=== PATIENT | male | born 1975 | race Caucasian/White ===

== ENCOUNTER → 2017-01-05 | Outpatient (REF) | payer OTHER | LOC: M LAB REF 17:07 | PROVIDERS: ATTEND Physician Assistant | DX: G89.4 Chronic pain syndrome (principal) ==

== ENCOUNTER → 2017-03-09 | Outpatient (CLI) | payer OTHER ==
[2017-03-09 17:32] LABS: ANION GAP 8 MEQ/L (8-16); BLOOD UREA NITROGEN 22 MG/DL (7-18); CALCIUM LEVEL 9.1 MG/DL (8.5-10.1); CARBON DIOXIDE LEVEL 29 MEQ/L (21-32); CHLORIDE LEVEL 104 MEQ/L (98-107); CREATININE FOR GFR 0.92 MG/DL (0.70-1.30); GLOMERULAR FILTRATION RATE > 60.0 (>60); GLUCOSE, FASTING 100 MG/DL (70-105); POTASSIUM SERUM 4.6 MEQ/L (3.5-5.1); SODIUM LEVEL 141 MEQ/L (136-145)
== END ==
LOC: M WUC 12:59
PROVIDERS: ATTEND Physician Assistant Medical
DX: R73.01 Impaired fasting glucose (principal); I10 Essential (primary) hypertension

== ENCOUNTER → 2017-04-21 | Outpatient (CLI) | payer OTHER ==
[2017-04-21 18:32] LABS: FREE T4 1.13 NG/DL (0.76-1.46)
[2017-04-21 18:50] LABS: THYROID PEROXIDASE ANTIBODY < 28.0 U/ML (<60.0)
== END ==
LOC: M SMT 14:42
PROVIDERS: ATTEND Family Medicine
DX: E04.0 Nontoxic diffuse goiter (principal)

== ENCOUNTER → 2017-04-26 | Outpatient (CLI) | payer OTHER ==
--- NOTE | 2017-04-27 05:40 | REP ---
Clinical: Hypothyroidism. Mass effect. Technique: Real time hedrick scale ultrasound examination using linear high frequency transducer. Findings: With the exception of a small 5.4 x 3.1 x 2.7 cm cyst with mural calcification in the lower pole of the right thyroid lobe, the thyroid gland is normal in contour, size, and overall parenchymal echogenicity. No further nodule or cystic abnormalities are identified. Right lobe measures 4.7 x 1.3 x 2.0 cm. Left lobe measures 4.3 x 1.3 x 1.2 cm. Isthmus measures 4.7 mm in width. Impression: 5 mm nonspecific right lower pole cyst. Otherwise normal thyroid gland. Signed by Seb Shelton MD 04/27/2017 05:31 A
== END ==
LOC: M RAD 13:10
PROVIDERS: ATTEND Family Medicine
DX: E04.1 Nontoxic single thyroid nodule (principal)

== ENCOUNTER → 2017-07-30 | Outpatient (CLI) | payer OTHER | LOC: M RAD 13:52 | DX: J32.9 Chronic sinusitis, unspecified (principal) | CPT/HCPCS: 70486 ==

== ENCOUNTER → 2018-03-29 | Outpatient (CLI) | payer OTHER ==
[2018-03-29 19:08] LABS: ALBUMIN 3.7 GM/DL (3.2-5.2); ALBUMIN/GLOBULIN RATIO 1.12 (1.00-1.93); ALKALINE PHOSPHATASE 81 U/L (45-117); ALT/SGPT 36 U/L (12-78); ANION GAP 7 MEQ/L (8-16); AST/SGOT 15 U/L (7-37); BILIRUBIN,TOTAL 0.3 MG/DL (0.2-1.0); BLOOD UREA NITROGEN 21 MG/DL (7-18); CARBON DIOXIDE LEVEL 31 MEQ/L (21-32); CHLORIDE LEVEL 102 MEQ/L (98-107); FREE T4 1.11 NG/DL (0.76-1.46); GLOMERULAR FILTRATION RATE > 60.0 (>60); GLUCOSE, FASTING 99 MG/DL (70-100); POTASSIUM SERUM 4.5 MEQ/L (3.5-5.1); SODIUM LEVEL 140 MEQ/L (136-145)
[2018-03-29 22:45] LABS: CHLAMYDIA DNA AMPLIFICATION NEGATIVE (NEGATIVE); GC DNA AMPLIFICATION NEGATIVE (NEGATIVE)
[2018-03-30 10:35] LABS: HEPATITIS C VIRUS ABY INDEX 0.2 INDEX (<0.8); HIV 1&2 SCREEN CENTAUR NEGATIVE (NEGATIVE)
== END ==
LOC: M SMT 14:19
DX: E03.9 Hypothyroidism, unspecified (principal); B37.0 Candidal stomatitis; Z11.3 Encounter for screening for infections with a predominantly sexual mode of transmission; R19.7 Diarrhea, unspecified
CPT/HCPCS: 84443

== ENCOUNTER → 2018-10-14 | Outpatient (REF) | payer OTHER ==
[2018-10-14 17:35] LABS: INFLUENZA A AMPLIFICATION NEGATIVE (NEGATIVE); INFLUENZA B AMPLIFICATION NEGATIVE (NEGATIVE)
== END ==
LOC: M LAB REF 16:50
PROVIDERS: ATTEND Physician Assistant
DX: J11.1 Influenza due to unidentified influenza virus with other respiratory manifestations (principal)

== ENCOUNTER → 2019-03-20 | Outpatient (REF) | payer OTHER | LOC: M LAB REF 15:22 | PROVIDERS: ATTEND Physician Assistant Medical | DX: R10.9 Unspecified abdominal pain (principal) ==

== ENCOUNTER → 2019-04-07 | Outpatient (REF) | payer OTHER ==
[2019-04-07 19:54] LABS: THYROID STIMULATING HORMONE 0.541 uIU/ML (0.358-3.740)
== END ==
LOC: M SFHCLERA 14:14
PROVIDERS: ATTEND Nurse Practitioner Family
DX: E03.9 Hypothyroidism, unspecified (principal)

== ENCOUNTER → 2019-08-10 | Outpatient (CLI) | payer OTHER ==
[2019-08-10 14:01] LABS: BLOOD UREA NITROGEN 15 MG/DL (7-18); CALCIUM LEVEL 8.9 MG/DL (8.5-10.1); CARBON DIOXIDE LEVEL 32 MEQ/L (21-32); CHLORIDE LEVEL 102 MEQ/L (98-107); CREATININE FOR GFR 1.03 MG/DL (0.70-1.30); GLOMERULAR FILTRATION RATE > 60.0 (>60); GLUCOSE, FASTING 80 MG/DL (70-100); POTASSIUM SERUM 3.2 MEQ/L (3.5-5.1); SODIUM LEVEL 139 MEQ/L (136-145); THYROID STIMULATING HORMONE 0.953 uIU/ML (0.358-3.740)
[2019-08-12 00:07] LABS: TESTOSTERONE FREE (DIRECT) 9.3 pg/mL (6.8-21.5)
== END ==
LOC: M WUC 09:06
PROVIDERS: ATTEND Family Medicine
DX: F52.0 Hypoactive sexual desire disorder (principal)

== ENCOUNTER → 2019-09-18 | Outpatient (REF) | payer OTHER | LOC: M SFHCLERA 16:48 | PROVIDERS: ATTEND Nurse Practitioner Family | DX: R68.89 Other general symptoms and signs (principal) ==

== ENCOUNTER → 2020-04-30 | Outpatient (CLI) | payer OTHER | LOC: M WUC 13:45 | PROVIDERS: ATTEND Family Medicine | DX: N40.0 Benign prostatic hyperplasia without lower urinary tract symptoms (principal) ==

== ENCOUNTER → 2020-07-22 | Outpatient (CLI) | payer OTHER ==
--- NOTE | 2020-07-22 18:13 | REP ---
INDICATION: N50.9 TESTICULAR LESION COMPARISON: None. TECHNIQUE: Olivas scale and color Doppler evaluation using linear and curved array transducer with color Doppler evaluation. FINDINGS: The bilateral testicles are normal in contour, size, echogenicity and vascularity without intratesticular mass lesion, infectious/inflammatory process, or torsion. The left epididymis including appendix epididymis appears normal. Patient's palpable mass corresponds to 2.2 x 1.9 x 1.5 cm simple right epididymal head cyst. No hydroceles. No varicoceles. Right testicle measures 5.3 x 2.4 x 3.2 cm. Left testicle measures 5.3 x 2.2 x 3.4 cm. IMPRESSION: Palpable mass corresponds to 2.2 cm simple right epididymal head cyst. Otherwise essentially normal scrotal/testicular ultrasound. <Electronically signed by Seb Shelton > 07/22/20 [id number]
== END ==
LOC: M WHC 09:58
PROVIDERS: ATTEND Family Medicine
DX: N50.9 Disorder of male genital organs, unspecified (principal)

== ENCOUNTER → 2021-01-01 | Outpatient (REF) | payer OTHER | LOC: M WUC 16:20 | PROVIDERS: ATTEND Family Medicine | DX: E03.9 Hypothyroidism, unspecified (principal) ==

== ENCOUNTER → 2022-05-14 | Outpatient (CLI) | payer OTHER ==
[2022-05-14 17:04] LABS: BASO % 0.4 % (0.0-1.0); EOS # 0.3 10^3/uL (0.0-0.5); EOS % 3.9 % (0.0-3.0); HEMATOCRIT 48.6 % (42.0-52.0); HEMOGLOBIN 16.2 g/dl (13.5-17.5); LYMPH # 1.4 10^3/uL (1.5-5.0); LYMPH % 17.5 % (24.0-44.0); MEAN CORPUSCULAR HEMOGLOBIN 32.2 pg (27.0-33.0); MEAN CORPUSCULAR HGB CONC 33.3 g/dl (32.0-36.5); MEAN CORPUSCULAR VOLUME 96.6 fl (80.0-96.0); MONO # 0.6 10^3/uL (0.0-0.8); MONO % 7.8 % (2.0-8.0); NEUTROPHILS # 5.7 10^3/uL (1.5-8.5); NEUTROPHILS % 69.8 % (36.0-66.0); PLATELET COUNT, AUTOMATED 347 10^3/uL (150-450); RED BLOOD COUNT 5.03 10^6/uL (4.30-6.10); WHITE BLOOD COUNT 8.2 10^3/uL (4.0-10.0)
[2022-05-14 17:49] LABS: ALBUMIN 3.9 GM/DL (3.2-5.2); ALT/SGPT 31 U/L (12-78); BILIRUBIN,TOTAL 0.4 MG/DL (0.2-1.0); BLOOD UREA NITROGEN 10 MG/DL (7-18); CALCIUM LEVEL 9.3 MG/DL (8.5-10.1); CARBON DIOXIDE LEVEL 29 MEQ/L (21-32); CHLORIDE LEVEL 103 MEQ/L (98-107); GLOMERULAR FILTRATION RATE > 60.0 (>60); GLUCOSE, FASTING 142 MG/DL (70-100); POTASSIUM SERUM 4.3 MEQ/L (3.5-5.1); SODIUM LEVEL 137 MEQ/L (136-145); TOTAL PROTEIN 7.5 GM/DL (6.4-8.2)
== END ==
LOC: M WUC 13:05
PROVIDERS: ATTEND Physician Assistant
DX: M54.50 Low back pain, unspecified (principal); R31.9 Hematuria, unspecified

== ENCOUNTER → 2022-08-05 | Outpatient (CLI) | payer OTHER ==
[2022-08-05 09:46] LABS: APPEARANCE, URINE MANUAL CLEAR (CLEAR); BILIRUBIN, URINE MANUAL NEGATIVE (NEGATIVE); BLOOD URINE MANUAL POSITIVE (NEGATIVE); COLOR, URINE MANUAL YELLOW (YELLOW); GLUCOSE, URINE (UA) MANUAL NEGATIVE (NEGATIVE); KETONE, URINE MANUAL NEGATIVE (NEGATIVE); LEUKOCYTE ESTERASE, URINE MAN NEGATIVE (NEGATIVE); NITRITE, URINE MANUAL NEGATIVE (NEGATIVE); PROTEIN, URINE MANUAL NEGATIVE (NEGATIVE); UROBILINOGEN, URINE MANUAL NORMAL (NORMAL)
[2022-08-05 09:52] LABS: BASO # 0.1 10^3/uL (0.0-0.2); BASO % 0.5 % (0.0-1.0); EOS # 0.3 10^3/uL (0.0-0.5); EOS % 3.1 % (0.0-3.0); HEMATOCRIT 48.5 % (42.0-52.0); HEMOGLOBIN 16.2 g/dl (13.5-17.5); LYMPH # 2.1 10^3/uL (1.5-5.0); LYMPH % 19.5 % (24.0-44.0); MEAN CORPUSCULAR HEMOGLOBIN 31.8 pg (27.0-33.0); MEAN CORPUSCULAR HGB CONC 33.4 g/dl (32.0-36.5); MEAN CORPUSCULAR VOLUME 95.1 fl (80.0-96.0); MONO # 0.9 10^3/uL (0.0-0.8); MONO % 8.3 % (2.0-8.0); NEUTROPHILS # 7.2 10^3/uL (1.5-8.5); NEUTROPHILS % 67.4 % (36.0-66.0); PLATELET COUNT, AUTOMATED 329 10^3/uL (150-450); WHITE BLOOD COUNT 10.6 10^3/uL (4.0-10.0)
[2022-08-05 10:06] LABS: HEMOGLOBIN A1c 5.4 % (4.0-6.0)
[2022-08-05 10:17] LABS: SQUAMOUS EPITHELIAL CELL URINE SMALL AMOUNT /hpf (SMALL AMT)
[2022-08-05 10:18] LABS: BACTERIA, URINE NONE SEEN; HYALINE CAST, URINE NONE SEEN /lpf (0-1); MUCUS, URINE SMALL AMOUNT (NEGATIVE); SPERM, URINE SMALL AMOUNT
[2022-08-05 10:25] LABS: ALBUMIN 3.9 G/DL (3.2-5.2); ALKALINE PHOSPHATASE 98 U/L (46-116); ALT/SGPT 33 U/L (7.0-40); AST/SGOT 21 U/L (<34); BILIRUBIN,TOTAL 0.5 MG/DL (0.3-1.2); BLOOD UREA NITROGEN 18 MG/DL (9-23); CALCIUM LEVEL 9.1 MG/DL (8.5-10.1); CARBON DIOXIDE LEVEL 32 MMOL/L (20-31); CHLORIDE LEVEL 100 MMOL/L (98-107); CHOLESTEROL LEVEL 172 MG/DL (<200); CHOLESTEROL RISK RATIO 4.58 (<5); GLOMERULAR FILTRATION RATE > 60.0 (>60); GLUCOSE, FASTING 131 MG/DL (60-100); HDL CHOLESTEROL 37.5 MG/DL (>40); LDL CHOLESTEROL 116.3 MG/DL (<100); NON-HDL-C 135 MG/DL; SODIUM LEVEL 139 MMOL/L (136-145); TOTAL PROTEIN 7.2 G/DL (5.7-8.2); TRIGLYCERIDES LEVEL 91 MG/DL (<150)
[2022-08-05 10:35] LABS: FREE T4 1.03 NG/DL (0.89-1.76)
[2022-08-05 10:36] LABS: TOTAL 25(OH) VITAMIN D 36.6 NG/ML (20.0-100.0)
[2022-08-05 11:55] LABS: THYROID STIMULATING HORMONE 2.222 uIU/ML (0.55-4.78)
== END ==
LOC: M WUC 08:36
PROVIDERS: ATTEND Physician Assistant
DX: R39.9 Unspecified symptoms and signs involving the genitourinary system (principal); I10 Essential (primary) hypertension; E66.01 Morbid (severe) obesity due to excess calories

== ENCOUNTER → 2022-10-05 | Outpatient (CLI) | payer OTHER ==
[~2022-10-05] MED LIST: GASTROGRAFIN SOLUTION 30ML As Ordered ONE; ISOVUE-370 76% 100ML VIAL As Ordered ONE
== END ==
LOC: M RAD 11:54
PROVIDERS: ATTEND Physician Assistant
DX: R39.9 Unspecified symptoms and signs involving the genitourinary system (principal); K92.1 Melena; R10.9 Unspecified abdominal pain; R19.5 Other fecal abnormalities
CPT/HCPCS: 74178; Q9963; Q9967

== ENCOUNTER → 2023-04-28 | Outpatient (REF) | payer OTHER ==
[2023-04-28 18:06] LABS: APPEARANCE, URINE CLEAR (CLEAR); BACTERIA, URINE AUTO NEGATIVE (NEGATIVE); BILIRUBIN, URINE AUTO NEGATIVE (NEGATIVE); BLOOD, URINE BLOOD 2+ (NEGATIVE); COLOR, URINE YELLOW (YELLOW); GLUCOSE, URINE (UA) AUTO NEGATIVE (NEGATIVE); KETONE, URINE AUTO NEGATIVE (NEGATIVE); LEUKOCYTE ESTERASE, URINE AUTO NEGATIVE (NEGATIVE); MUCUS, URINE SMALL (NEGATIVE); NITRITE, URINE AUTO NEGATIVE (NEGATIVE); PROTEIN, URINE AUTO NEGATIVE (NEGATIVE); RBC, URINE AUTO 5 /HPF (0-3); SPECIFIC GRAVITY URINE AUTO 1.016 (1.002-1.035); SQUAMOUS EPITHELIAL CELL UR AU 0 /HPF (0-6); UROBILINOGEN, URINE AUTO 0.2 mg/dL (0.0-2.0); WBC, URINE AUTO 0 /HPF (0-3)
== END ==
LOC: M SFHCLERA 16:49
PROVIDERS: ATTEND Physician Assistant
DX: R31.29 Other microscopic hematuria (principal); J22 Unspecified acute lower respiratory infection

== ENCOUNTER → 2023-06-24 | Outpatient (CLI) | payer OTHER | LOC: M RAD 11:31 | PROVIDERS: ATTEND Physician Assistant | DX: J32.9 Chronic sinusitis, unspecified (principal); J34.1 Cyst and mucocele of nose and nasal sinus ==

== ENCOUNTER 2023-08-12 01:58 | Emergency (ER) | payer OTHER ==
[~2023-08-12] VITALS: Ht 167.6 cm; Wt 114.3 kg
[2023-08-12 01:59] VITALS: BP 162/92; TEMP 97.6; O2SAT 97
[2023-08-12] MEDS ORDERED: OXYCODONE/APAP 5MG/325MG(HOME DOSE PACK) PO ONE (03:30)
[2023-08-12] MEDS ORDERED: LevoFLOXacin 500 MG TABLET PO ONE (03:30)
[2023-08-12] MEDS ORDERED: metroNIDAZOLE (FLAGYL) 500MG TABLET PO ONE (03:30)
[2023-08-12] MEDS ORDERED: predniSONE 20 MG TAB PO ONE (03:30)
[2023-08-12] MEDS ORDERED: METR-265 PO (03:32)
[2023-08-12] MEDS ORDERED: PRED20TA PO (03:32)
[2023-08-12] MEDS ORDERED: LEVO1TAB39 PO (03:32)
== END 2023-08-12 03:52 | disposition home or self-care (01) ==
LOC: M ED 02:51
DX: K08.89 Other specified disorders of teeth and supporting structures (principal); F43.10 Post-traumatic stress disorder, unspecified; I10 Essential (primary) hypertension; E03.9 Hypothyroidism, unspecified; F17.290 Nicotine dependence, other tobacco product, uncomplicated; F12.10 Cannabis abuse, uncomplicated; F90.0 Attention-deficit hyperactivity disorder, predominantly inattentive type; Z79.52 Long term (current) use of systemic steroids; Z79.899 Other long term (current) drug therapy
CPT/HCPCS: 99282; J7512

== ENCOUNTER → 2023-08-24 | Outpatient (CLI) | payer OTHER ==
[~2023-08-24] MED LIST changes: -GASTROGRAFIN SOLUTION 30ML As Ordered ONE; -ISOVUE-370 76% 100ML VIAL As Ordered ONE; +LEVO1TAB39 PO; +METR-265 PO; +PRED20TA PO
[2023-08-24 17:30] LABS: BASO % 0.5 % (0.0-1.0); EOS # 0.4 10^3/uL (0.0-0.5); EOS % 4.5 % (0.0-3.0); HEMOGLOBIN 16.3 g/dl (13.5-17.5); LYMPH # 1.9 10^3/uL (1.5-5.0); LYMPH % 23.2 % (24.0-44.0); MEAN CORPUSCULAR HEMOGLOBIN 31.5 pg (27.0-33.0); MEAN CORPUSCULAR HGB CONC 33.3 g/dl (32.0-36.5); MEAN CORPUSCULAR VOLUME 94.8 fl (80.0-96.0); MONO # 0.6 10^3/uL (0.0-0.8); MONO % 7.7 % (2.0-8.0); NEUTROPHILS # 5.2 10^3/uL (1.5-8.5); NEUTROPHILS % 63.7 % (36.0-66.0); PLATELET COUNT, AUTOMATED 357 10^3/uL (150-450); RED BLOOD COUNT 5.17 10^6/uL (4.30-6.10); WHITE BLOOD COUNT 8.1 10^3/uL (4.0-10.0)
[2023-08-24 18:00] LABS: ALBUMIN 3.8 G/DL (3.2-5.2); ALKALINE PHOSPHATASE 73 U/L (46-116); ALT/SGPT 50 U/L (7.0-40); AST/SGOT 24 U/L (<34); BILIRUBIN,TOTAL 0.5 MG/DL (0.3-1.2); BLOOD UREA NITROGEN 15 MG/DL (9-23); CALCIUM LEVEL 8.8 MG/DL (8.5-10.1); CARBON DIOXIDE LEVEL 28 MMOL/L (20-31); CHLORIDE LEVEL 109 MMOL/L (98-107); CHOLESTEROL LEVEL 166 MG/DL (<200); CHOLESTEROL RISK RATIO 4.43 (<5); CREATININE FOR GFR 0.79 MG/DL (0.70-1.30); GLOMERULAR FILTRATION RATE > 60.0 (>60); GLUCOSE, FASTING 131 MG/DL (60-100); HDL CHOLESTEROL 37.4 MG/DL (>40); LDL CHOLESTEROL 114.8 MG/DL (<100); NON-HDL-C 128.6 MG/DL; POTASSIUM SERUM 3.9 MMOL/L (3.5-5.1); SODIUM LEVEL 138 MMOL/L (136-145); TOTAL PROTEIN 6.8 G/DL (5.7-8.2); TRIGLYCERIDES LEVEL 69 MG/DL (<150)
[2023-08-24 18:02] LABS: VITAMIN B12 LEVEL 618 PG/ML (211-911)
[2023-08-24 18:03] LABS: FOLATE > 24.00 NG/ML (>5.4); TOTAL 25(OH) VITAMIN D 40.4 NG/ML (20.0-100.0)
[2023-08-24 18:04] LABS: FREE T4 1.08 NG/DL (0.89-1.76); THYROID STIMULATING HORMONE 0.726 uIU/ML (0.55-4.78)
[2023-08-24 18:15] LABS: HEMOGLOBIN A1c 5.5 % (4.0-6.0)
== END ==
LOC: M WUC 13:02
PROVIDERS: ATTEND Physician Assistant
DX: I10 Essential (primary) hypertension (principal); R53.83 Other fatigue

== ENCOUNTER 2024-08-22 11:42 | Day surgery (SDC) | payer OTHER ==
[~2024-08-22] VITALS: Ht 170.2 cm; Wt 107.2 kg
[~2024-08-22 11:42] MED LIST changes: +ACET650T61 PO; +AMLO1TAB24 PO; +B-12100010 PO; +BUSP30TA PO; +CLEO150C PO; +DEXT1TAB19 PO; +FLON1SPR; +LEVO75TA4 PO; +OLOP2.5D3 OU; +OMEP10CASR PO; +OMEP1CAP73 PO; +SPIR1TAB34 PO; +VENTAER INH; +VITA100093 PO; +VITATAB73 PO; +VYVA70CA3 PO; +ZYRTTAB8 PO; +[UNRECOGNIZED DRUG - OTHER]; +[UNRECOGNIZED DRUG - OTHER]; +[UNRECOGNIZED DRUG - OTHER]; +xyzal PO
[2024-08-22] MEDS ORDERED: fentaNYL 100 MCG/2 ML INJECTION As Ordered ONE (12:04)
[2024-08-22] MEDS ORDERED: GLYCOPYRROLATE INJ 0.2 MG/ML 2 ML VIAL As Ordered ONE (13:32)
[2024-08-22] MEDS ORDERED: LIDOCAINE 2% 100MG/5ML SDV (FOR ANES.) As Ordered ONE (13:32)
[2024-08-22] MEDS ORDERED: propofoL 200 MG/20 ML VIAL As Ordered ONE (13:33)
[2024-08-22 14:05] VITALS: TEMP 97.2
[2024-08-22 14:25] VITALS: BP 138/76; O2SAT 99
== END 2024-08-22 14:32 | disposition home or self-care (01) ==
LOC: M OPP 11:42
PROVIDERS: ATTEND Internal Medicine Gastroenterology
DX: D12.5 Benign neoplasm of sigmoid colon (principal); K63.89 Other specified diseases of intestine; K57.30 Diverticulosis of large intestine without perforation or abscess without bleeding; K64.8 Other hemorrhoids; K92.1 Melena; K22.70 Barrett's esophagus without dysplasia; K22.2 Esophageal obstruction; K22.89 Other specified disease of esophagus; R12 Heartburn; R13.11 Dysphagia, oral phase; K44.9 Diaphragmatic hernia without obstruction or gangrene; F17.290 Nicotine dependence, other tobacco product, uncomplicated; Z79.899 Other long term (current) drug therapy; J45.909 Unspecified asthma, uncomplicated
CPT/HCPCS: 43239; 43249; 45380; 45385; 88305; J1596; J3010